=== PATIENT | male | born 1980 | race Caucasian/White ===

== ENCOUNTER → 2019-10-20 09:29 | Outpatient (BNVA) | payer MEDICARE, MEDICAID, SELFPAY | PROVIDERS: PCP Nurse Practitioner Family; Visit Provider Anesthesiology | DX: G89.29 Other chronic pain (principal); M51.16 Intervertebral disc disorders with radiculopathy, lumbar region; M54.2 Cervicalgia; F17.210 Nicotine dependence, cigarettes, uncomplicated; Z79.891 Long term (current) use of opiate analgesic | CPT/HCPCS: 99214 ==

== ENCOUNTER → 2020-02-15 12:54 | Outpatient (BNVA) | payer MEDICARE, SELFPAY | PROVIDERS: PCP Nurse Practitioner Family; Visit Provider Anesthesiology | DX: G89.29 Other chronic pain (principal); M51.16 Intervertebral disc disorders with radiculopathy, lumbar region; M54.9 Dorsalgia, unspecified; M54.2 Cervicalgia; F17.210 Nicotine dependence, cigarettes, uncomplicated; Z79.891 Long term (current) use of opiate analgesic; Z71.6 Tobacco abuse counseling | CPT/HCPCS: 99214 ==

== ENCOUNTER → 2020-04-04 13:13 | Outpatient (BNVA) | payer MEDICARE, MEDICAID, SELFPAY | PROVIDERS: PCP Nurse Practitioner Family; Visit Provider Anesthesiology | DX: G89.29 Other chronic pain (principal); M51.16 Intervertebral disc disorders with radiculopathy, lumbar region; M54.9 Dorsalgia, unspecified; M54.2 Cervicalgia; F17.210 Nicotine dependence, cigarettes, uncomplicated; Z79.891 Long term (current) use of opiate analgesic; Z71.6 Tobacco abuse counseling | CPT/HCPCS: 99214 ==

== ENCOUNTER 2020-05-19 17:49 | Emergency (ER) | payer MEDICARE, MEDICAID, SELFPAY ==
[2020-05-19 17:55] VITALS: BP 108/68; PULSE 65; RESP 16; TEMP 36.4; O2SAT 96; BMI 27.1
--- NOTE | 2020-05-19 18:12 | ECG_ITS ---
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 Measurements Intervals [place] Rate: 67 P: 76 FL: 178 QRS: 60 QRSD: 98 T: 55 QT: 360 QTc: 380 Interpretive Statements SINUS RHYTHM Compared to ECG 01/03/2019 04:48:08 Sinus bradycardia no longer present Electronically Signed On 05-19-2020 21:14:32 CDT by Paty Reeder M.D. [id number] f
--- NOTE | 2020-05-19 18:12 | XRR_ITS ---
PROCEDURE INFORMATION: Exam: XR Chest, 1 View Exam date and time: 05/19/2020 7:29 PM Age: 39 years old Clinical indication: Chest pain; Additional info: Cp TECHNIQUE: Imaging protocol: XR of the chest Views: 1 view. COMPARISON: CR Chest 1 [place] [id number] 01/03/2019 3:51 AM FINDINGS: Lungs: Unremarkable. No consolidation. Pleural space: Unremarkable. No pleural effusion. No pneumothorax. Heart/Mediastinum: Unremarkable. No cardiomegaly. Bones/joints: Unremarkable. XR/XR chest 1V portable [id number] IMPRESSION: No acute findings.
[2020-05-19 19:17] LABS: Add Urine Microscopic? NO
[2020-05-19 19:22] LABS: Bilirubin Urine Neg (NEGATIVE); Blood Urine Neg (Negative); Glucose Urine UA Norm (Normal); Ketones Urine Negative (Negative); Leukocyte Esterase Urine Negative (Negative); Nitrate Urine Negative (Negative); Protein Urine Neg (Negative); Urine Appearance Clear (CLEAR); Urine Color Dark Yellow (Yellow); Urobilinogen Urine 1 mg/dL (Negative); pH Urine 5 (5-7)
--- NOTE | 2020-05-19 19:25 | ED_ITS ---
HPI - Chest Pain General: Chief Complaint: Chest Pain Stated Complaint: cp Time Seen by Provider: 05/19/20 19:13 Source: patient Mode of arrival: ambulatory Limitations: no limitations History of Present Illness: HPI narrative: 39-year-old male patient comes in for some chest discomfort. Patient reports he had been started on some fenofibrate 1 week ago. Patient stated that since starting the medicine he had had some chest discomfort and just felt weird. Patient stopped the medication 2 days ago and has been feeling better since then. Patient has some mild discomfort but nothing like it was. Patient appears well. Patient appears in no acute distress. Patient does have some chronic pain issues for back pain. MD complaint: chest discomfort Review of Systems General: Reports: 10 or more systems reviewed and unremarkable except in HPI and below Card: Reports: chest pain [facility] ED PFSH: Medical History (Updated 05/19/20 @ 20:44 by PILO Tejada) Encounter for long-term use of opiate analgesic Intervertebral disc disorders with radiculopathy, lumbar region Neck pain, chronic Opioid contract exists Smoker Tobacco abuse counseling Surgical History H/O hand surgery H/O right knee surgery Family History Other CAD (coronary artery disease) Social History (Updated 04/04/20 @ 13:39 by Ayanna Moore LPN) Smoking and tobacco status: current every day smoker cigarettes Packs smoked per day: 0.5 Alcohol intake: unknown Physical Exam Const: COMMON NORMALS: no acute distress and patient oriented x3 GENERAL APPEARANCE: cooperative HENMT: COMMON NORMALS: normocephalic, TM's normal bilaterally and Normal external nose present HEAD & SCALP: normal to inspection and normocephalic NOSE: Normal external nose present TYMPANIC MEMBRANE: TM's normal bilaterally MOUTH: Normal oral and palatal mucosa present THROAT: posterior oropharynx normal Eye: GENERAL EYE: appearance normal, both eyes and all related structures Neck/C-Spine: COMMON NORMALS: full ROM Lymph: LYMPHATIC: no lymphadenopathy noted Chest: COMMONS NORMALS: normal inspection of the chest Resp: COMMON NORMALS: normal respiratory effort EFFORT & INSPECTION: Yes able to speak in complete sentences Cardio: COMMON NORMALS: regular rate and regular rhythm RATE: regular rate RHYTHM: regular rhythm GI: COMMON NORMALS: Soft to palpation and non-tender PALPATION: Yes Soft to palpation Back/Pelvis: COMMON NORMALS: thoracic and lumbar spine normal to inspection Extremity: COMMON NORMALS: normal to inspection Neuro: COMMON NORMALS: patient oriented x3 and moves all extremities Psych: COMMON NORMALS: mental status grossly normal and cooperative Skin: COMMON NORMALS: no rashes or lesions noted GENERAL SKIN EXAM: no rashes or lesions noted Course Vital Signs: Vital signs: Vital Signs Temperature 97.5 F L 05/19/20 17:55 Pulse Rate 65 05/19/20 17:55 Respiratory Rate 16 05/19/20 17:55 Blood Pressure 108/68 05/19/20 17:55 Pulse Oximetry 95 05/19/20 19:35 MDM - Chest Pain MDM Narrative: Medical decision making narrative: Patient came in for concerns of some chest discomfort. Patient reports that the discomfort has improved since stopping his finasteride that he was started on for his cholesterol. Patient came in for evaluation as his told him to. Patient appears well. Patient appears no acute distress. Heart rates regular. No edema in the e xtremities. Abdomen soft nontender. Vital signs are normal. Differential diagnosis includes but not limited to ACS, stable angina, adverse drug effect. Laboratory values were normal. Troponin was negative. EKG was normal. Reviewed exam with patient I believe it is probably due to his finasteride that he was started on for his cholesterol. Since the finasteride works with the liver to suppressed bile it may be causing some gastric distress and thus referred abdominal pain. No signs of cardiac involvement is noted at this time. Reviewed recommendations for follow-up and further evaluation by primary care. Patient stated understanding and agreed to plan. Lab Data: Labs: Lab Results 05/19/20 05/19/20 05/19/20 Range/Units 19:11 19:11 19:49 WBC 12.0 H (4.0-10.0) 10^3/ uL RBC 4.92 (4.1-5.3) 10^6/u L Hgb 15.6 (11.7-16.6) g/dL Hct 45.0 (42.0-52.0) % MCV 91.5 (80-94) fL MCH 31.7 (28.0-34.0) pg MCHC 34.7 (30.0-36.0) g/dL RDW 13.1 (12.1-15.1) % Plt Count 198 (130-400) 10^3/c mm MPV 10.2 (7.4-10.4) fL Neut % (Auto) 55.8 % Lymph % (Auto) 32.8 % Dawson % (Auto) 7.5 % Eos % (Auto) 3.2 % Baso % (Auto) 0.5 % Neut # (Auto) 6.70 (1.8-7.7) 10^3/u L Lymph # (Auto) 3.9 (0.8-4.8) 10^3/u L Dawson # (Auto) 0.9 (0.2-0.9) 10^3/u L Eos # (Auto) 0.4 (0.0-0.8) 10^3/u L Baso # (Auto) 0.1 (0.0-0.1) 10^3/u L Nucleated RBC % (a uto) 0 % Nucleated RBCs # 0.0 /100WBC PT (12.1-14.9) SECO NDS INR (0.8-1.2) APTT (23.9-36.7) SECO NDS Sodium (136-145) mmol/L Potassium (3.5-5.1) mmol/L Chloride (98-107) mmol/L Carbon Dioxide (22-29) mmol/L Anion Gap (5-19) BUN (6-20) mg/dL Creatinine (0.7-1.2) mg/dL GFR Calculation (90-130) mL/min Glucose (65-115) mg/dL Calculated Osmolal ity (285-295) mOsm/k g Calcium (8.5-10.5) mg/dL Total Bilirubin (0.15-1.2) mg/dL AST (0-40) U/L ALT (0-41) U/L Alkaline Phosphata se (40-130) IU/L Troponin T Baselin e (0-15) ng/L NT-Pro-B Natriuret Pep (0-125) pg/mL Total Protein (6.6-8.7) g/dL Albumin (3.5-5.2) g/dL Globulin (1.3-4.6) g/dL Urine Color Dark yellow (Yellow) Urine Appearance Clear (CLEAR) Urine pH 5 (5-7) Ur Specific Gravit y 1.030 (1.005-1.030) Urine Protein Neg (Negative) Urine Glucose (UA) Norm (Normal) Urine Ketones Negative (Negative) Urine Blood Neg (Negative) Urine Nitrate Negative (Negative) Urine Bilirubin Neg (NEGATIVE) Urine Urobilinogen 1 H (Negative) mg/dL Ur Leukocyte Kristen ase Negative (Negative) Urine Opiates Scre en Negative (Negative) ng/mL Ur Barbiturates Sc reen Negative (Negative) ng/mL Ur Phencyclidine S crn Negative (Negative) ng/mL Ur Amphetamines Sc reen Negative (Negative) ng/mL U Benzodiazepines Scrn Negative (Negative) ng/mL Urine Cocaine Scre en Negative (Negative) ng/mL U Marijuana (THC) Screen Positive H (Negative) ng/mL 05/19/20 05/19/20 05/19/20 Range/Units 19:49 19:49 19:49 WBC (4.0-10.0) 10^3/ uL RBC (4.1-5.3) 10^6/u L Hgb (11.7-16.6) g/dL Hct (42.0-52.0) % MCV (80-94) fL MCH (28.0-34.0) pg MCHC (30.0-36.0) g/dL RDW (12.1-15.1) % Plt Count (130-400) 10^3/c mm MPV (7.4-10.4) fL Neut % (Auto) % Lymph % (Auto) % Dawson % (Auto) % Eos % (Auto) % Baso % (Auto) % Neut # (Auto) (1.8-7.7) 10^3/u L Lymph # (Auto) (0.8-4.8) 10^3/u L Dawson # (Auto) (0.2-0.9) 10^3/u L Eos # (Auto) (0.0-0.8) 10^3/u L Baso # (Auto) (0.0-0.1) 10^3/u L Nucleated RBC % (a uto) % Nucleated RBCs # /100WBC PT 12.90 (12.1-14.9) SECO NDS INR 0.94 (0.8-1.2) APTT 28.5 (23.9-36.7) SECO NDS Sodium 140 (136-145) mmol/L Potassium 4.0 (3.5-5.1) mmol/L Chloride 104 (98-107) mmol/L Carbon Dioxide 27 (22-29) mmol/L Anion Gap 13.0 (5-19) BUN 20 (6-20) mg/dL Creatinine 0.9 (0.7-1.2) mg/dL GFR Calculation 93.0 (90-130) mL/min Glucose 106 (65-115) mg/dL Calculated Osmolal ity 287 (285-295) mOsm/k g Calcium 9.3 (8.5-10.5) mg/dL Total Bilirubin 1.1 (0.15-1.2) mg/dL AST 13 (0-40) U/L ALT 20 (0-41) U/L Alkaline Phosphata se 58 (40-130) IU/L Troponin T Baselin e 7 (0-15) ng/L NT-Pro-B Natriuret Pep 39 (0-125) pg/mL Total Protein 6.9 (6.6-8.7) g/dL Albumin 4.6 (3.5-5.2) g/dL Globulin 2.3 (1.3-4.6) g/dL Urine Color (Yellow) Urine Appearance (CLEAR) Urine pH (5-7) Ur Specific Gravit y (1.005-1.030) Urine Protein (Negative) Urine Glucose (UA) (Normal) Urine Ketones (Negative) Urine Blood (Negative) Urine Nitrate (Negative) Urine Bilirubin (NEGATIVE) Urine Urobilinogen (Negative) mg/dL Ur Leukocyte Kristen ase (Negative) Urine Opiates Scre en (Negative) ng/mL Ur Barbiturates Sc reen (Negative) ng/mL Ur Phencyclidine S crn (Negative) ng/mL Ur Amphetamines Sc reen (Negative) ng/mL U Benzodiazepines Scrn (Negative) ng/mL Urine Cocaine Scre en (Negative) ng/mL U Marijuana (THC) Screen (Negative) ng/mL EKG Data^: EKG 1: Attestation: I personally reviewed and interpreted this EKG as follows: (1925, normal sinus rhythm, regular rate at 67 bpm, no ST elevation, no ectopy.) EKG 2: Attestation: I personally reviewed and interpreted this EKG as follows: (2044, sinus bradycardia regular rate at 51 bpm no ectopy or ST elevation.) Discharge Plan Discharge Patient Disposition: Home Clinical Impression: Adverse drug effect Qualifiers: Encounter type: initial encounter Qualified Code(s): T50.905A - Adverse effect of unspecified drugs, medicaments and biological substances, initial encounter Condition: Stable Prescriptions: No Action oxycodone 15 mg tablet 15 mg PO TID PRN (Reason: pain) 30 Days Qty: 90 RF: 0 oxycodone 15 mg tablet 15 mg PO TID PRN (Reason: pain) 30 Days Qty: 90 RF: 0 tramadol 50 mg tablet 50 mg PO QID PRN (Reason: pain) 30 Days Qty: 120 RF: 1 pregabalin [Lyrica] 200 mg capsule 200 mg PO TID 30 Days Qty: 90 RF: 1 Discharge Orders: Discharge Order (Routine); Ordered 05/19/20 Ordered By: Ced Feliciano Referrals: Mitch Alcala NP [Primary Care Provider] - Discharge Diet: Usual diet Discharge Activity: Increase activity as tolerated Patient Instructions: Chest Pain (ED) Activity Restrictions/Additional Instructions: Healthy diet and exercise. Encourage plenty of fluids. Stop finasteride and follow-up with primary care for alternative medication. Follow-up with primary care as needed. Return to the emergency department for new concerns. Coding Level of Care Code ED Bobbin Collector for Ronyg Fwd Exam Comprehensive
[2020-05-19 19:27] LABS: Amphetamines Screen Urine Negative (Negative); Barbiturates Screen Urine Negative (Negative); Benzodiazepines Screen Urine Negative (Negative); Cocaine Screen Urine Negative (Negative); Opiate Screen Urine Negative (Negative); PCP Screen Urine Negative (Negative); THC Screen Urine Positive (Negative)
[2020-05-19 19:35] VITALS: O2SAT 95
[2020-05-19 19:55] LABS: Basophils # 0.1 10^3/uL (0.0-0.1); Basophils % 0.5 %; Eosinophils # 0.4 10^3/uL (0.0-0.8); Eosinophils % 3.2 %; Hemoglobin 15.6 g/dL (11.7-16.6); Lymphocytes # 3.9 10^3/uL (0.8-4.8); Lymphocytes % 32.8 %; Mean Corpuscular HGB Conc 34.7 g/dL (30.0-36.0); Mean Corpuscular Hemoglobin 31.7 pg (28.0-34.0); Mean Corpuscular Volume 91.5 fL (80-94); Mean Platelet Volume 10.2 fL (7.4-10.4); Monocytes # 0.9 10^3/uL (0.2-0.9); Monocytes % 7.5 %; Neutrophils % 55.8 %; Nucleated Red Blood Cells % 0 %; Platelet Count 198 10^3/cmm (130-400); Red Blood Count 4.92 10^6/uL (4.1-5.3); Red Cell Distribution Width 13.1 % (12.1-15.1)
[2020-05-19 20:07] LABS: INR 0.94 (0.8-1.2)
[2020-05-19 20:08] LABS: Partial Thromboplastin Time 28.5 SECONDS (23.9-36.7)
--- NOTE | 2020-05-19 20:12 | ECG_ITS ---
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 Measurements Intervals [place] Rate: 51 P: 76 [place]: 193 QRS: 59 QRSD: 99 T: 49 QT: 390 QTc: 362 Interpretive Statements SINUS BRADYCARDIA Compared to ECG 05/19/2020 18:05:55 Sinus rhythm no longer present Electronically Signed On 05-19-2020 21:16:39 CDT by Paty Reeder M.D. [id number]
[2020-05-19 20:24] LABS: Troponin(5th) Baseline 7 ng/L (0-15)
[2020-05-19 20:33] LABS: Alanine Aminotransferase 20 U/L (0-41); Albumin Level 4.6 g/dL (3.5-5.2); Alkaline Phosphatase 58 IU/L (40-130); Aspartate Amino Transferase 13 U/L (0-40); Blood Urea Nitrogen 20 mg/dL (6-20); Calcium 9.3 mg/dL (8.5-10.5); Carbon Dioxide 27 mmol/L (22-29); Chloride 104 mmol/L (98-107); Creatinine Clr Calc Pharmacy 126.5721; Globulin 2.3 g/dL (1.3-4.6); Glucose 106 mg/dL (65-115); NT Pro B Type Natriuretic Pept 39 pg/mL (0-125); Osmolality Calculated 287 mOsm/kg (285-295); Sodium 140 mmol/L (136-145); Total Bilirubin 1.1 mg/dL (0.15-1.2); Total Protein 6.9 g/dL (6.6-8.7)
[2020-05-19 21:05] VITALS: BP 167/84; PULSE 85; RESP 18; O2SAT 95
== END 2020-05-19 21:07 | disposition home or self-care (01) ==
PROVIDERS: Emergency Medicine; Emergency Provider Nurse Practitioner Family; PCP Nurse Practitioner Family
DX: T88.7XXA Unspecified adverse effect of drug or medicament, initial encounter (principal); T50.905A Adverse effect of unspecified drugs, medicaments and biological substances, initial encounter; F17.210 Nicotine dependence, cigarettes, uncomplicated; Z79.899 Other long term (current) drug therapy
CPT/HCPCS: 12345; 36415; 71045; 80053; 80306; 81003; 83880; 84484; 85025; 85610; 85730; 93005; 99283; 99284

== ENCOUNTER → 2020-06-06 13:07 | Outpatient (BNVA) | payer MEDICARE, MEDICAID, SELFPAY | PROVIDERS: PCP Nurse Practitioner Family; Visit Provider Anesthesiology | DX: G89.29 Other chronic pain (principal); M51.16 Intervertebral disc disorders with radiculopathy, lumbar region; M54.2 Cervicalgia; M54.9 Dorsalgia, unspecified; F17.210 Nicotine dependence, cigarettes, uncomplicated; Z71.6 Tobacco abuse counseling; Z79.891 Long term (current) use of opiate analgesic | CPT/HCPCS: 99214 ==

== ENCOUNTER → 2020-08-15 12:39 | Outpatient (BNVA) | payer MEDICARE, MEDICAID, SELFPAY | PROVIDERS: PCP Nurse Practitioner Family; Visit Provider Anesthesiology | DX: G89.29 Other chronic pain (principal); M51.16 Intervertebral disc disorders with radiculopathy, lumbar region; M54.2 Cervicalgia; M54.9 Dorsalgia, unspecified; F17.210 Nicotine dependence, cigarettes, uncomplicated; Z79.891 Long term (current) use of opiate analgesic | CPT/HCPCS: 99213; 99214 ==

== ENCOUNTER → 2020-10-10 10:53 | Outpatient (BNVA) | payer MEDICARE, MEDICAID, SELFPAY | PROVIDERS: PCP Nurse Practitioner Family; Visit Provider Anesthesiology | DX: G89.29 Other chronic pain (principal); M51.16 Intervertebral disc disorders with radiculopathy, lumbar region; M54.2 Cervicalgia; M54.9 Dorsalgia, unspecified; F17.200 Nicotine dependence, unspecified, uncomplicated; Z79.891 Long term (current) use of opiate analgesic | CPT/HCPCS: 99213 ==

== ENCOUNTER → 2020-12-07 12:39 | Outpatient (BNVA) | payer MEDICARE, MEDICAID, SELFPAY | PROVIDERS: PCP Nurse Practitioner Family; Visit Provider Anesthesiology | DX: G89.29 Other chronic pain (principal); M51.16 Intervertebral disc disorders with radiculopathy, lumbar region; M54.9 Dorsalgia, unspecified; M54.2 Cervicalgia; F17.200 Nicotine dependence, unspecified, uncomplicated; Z79.891 Long term (current) use of opiate analgesic | CPT/HCPCS: 99214 ==

== ENCOUNTER → 2021-02-01 09:34 | Outpatient (BNVA) | payer MEDICARE, MEDICAID, SELFPAY | PROVIDERS: PCP Nurse Practitioner Family; Visit Provider Nurse Practitioner | DX: G89.29 Other chronic pain (principal); M51.16 Intervertebral disc disorders with radiculopathy, lumbar region; M54.9 Dorsalgia, unspecified; M54.2 Cervicalgia; Z87.891 Personal history of nicotine dependence; Z79.891 Long term (current) use of opiate analgesic | CPT/HCPCS: 99215 ==

== ENCOUNTER → 2021-03-09 09:14 | Outpatient (BNVA) | payer MEDICARE, MEDICAID, SELFPAY | PROVIDERS: PCP Nurse Practitioner Family; Visit Provider Anesthesiology | DX: G89.29 Other chronic pain (principal); M51.16 Intervertebral disc disorders with radiculopathy, lumbar region; M54.9 Dorsalgia, unspecified; M54.2 Cervicalgia; Z79.891 Long term (current) use of opiate analgesic; Z87.891 Personal history of nicotine dependence | CPT/HCPCS: 99214 ==

== ENCOUNTER → 2021-05-03 13:10 | Outpatient (BNVA) | payer MEDICARE, MEDICAID, SELFPAY | PROVIDERS: PCP Nurse Practitioner Family; Visit Provider Anesthesiology | DX: G89.29 Other chronic pain (principal); M51.16 Intervertebral disc disorders with radiculopathy, lumbar region; M54.2 Cervicalgia; F17.290 Nicotine dependence, other tobacco product, uncomplicated; Z79.891 Long term (current) use of opiate analgesic | CPT/HCPCS: 99214 ==

== ENCOUNTER 2021-06-20 05:51 | Emergency (ER) | payer MEDICARE, MEDICAID, SELFPAY ==
[2021-06-20 05:56] VITALS: BP 149/66; PULSE 83; RESP 16; TEMP 36.4; O2SAT 96; BMI 27.1
--- NOTE | 2021-06-20 06:43 | US_ITS ---
WS: [id number] SCROTAL ULTRASOUND REASON FOR EXAM: Torsion COMPARISON: None available. TECHNIQUE: Grayscale and duplex color Doppler ultrasound examination of the scrotum. FINDINGS: RIGHT: Varicocele and minimal hydrocele. Right testes measures 5.2 cm x 3.0 cm x 2.7 cm. Normal echogenicity. No focal lesion. . Normal blood flow. Right epididymis measures 0.9 cm x 1.0 cm x 1.2 cm. Small cyst. LEFT: Varicocele and minimal hydrocele. Left testes measures 5.4 cm x 3.2 cm x 2.7 cm. Normal echogenicity. No focal lesion. Normal blood torrey w. Left epididymis measures 0.5 cm x 0.9 cm x 0.9 cm. Small cyst. US/US scrotum [id number] IMPRESSION: Bilateral varicocele and minimal hydrocele. Normal testicular blood flow. No ma ss.
--- NOTE | 2021-06-20 06:44 | ED_ITS ---
HPI - Male Genitourinary General: Chief complaint: Urogenital-Male Stated complaint: abd pain, nausea, groin pain Time Seen by Provider: 06/20/21 06:41 History of Present Illness: HPI Narrative: This patient is a 40-year-old male who presents to the emergency department with complaint of right testicular pain. Patient states the pain is been present for about a day. Just uncomfortable. Patient denies any trauma. Denies any heavy lifting. Will do medical evaluation treat as needed Complaint: testicle pain Onset (ago): day(s) Duration: constant Location: right testicle Severity scale (1-10): 6 Associated symptoms: Deny dysuria, nausea or vomiting Review of Systems General: Reports: 10 or more systems reviewed and unremarkable except in HPI and below Const: Denies: fever(s), chills, body aches or fatigue Eyes: Denies: change in vision or blurry vision ENMT: Denies: throat pain, hoarseness or mouth pain Card: Denies: chest pain, palpitations, irregular heart rhythm, edema, swelling of feet/ankles or lightheadedness Resp: Denies: dyspnea, productive cough, non-productive cough, wheezing or pain on inspiration GI: Denies: abdominal pain, nausea or vomiting : Reports: testicular pain; Denies: flank pain, dysuria, urinary frequency, urinary urgency or urinary hesitancy Musc: Denies: neck pain, back pain, extremity pain, extremity swelling, joint pain, joint swelling, joint redness, joint warmth or limited range of motion Skin/Breast: Denies: rash, pruritus, erythema or skin tenderness Neuro: Denies: headache(s), numbness in extremities or weakness in extremities Psych: Denies: anxiety or depression [facility] ED PFSH: Medical History (Updated 06/20/21 @ 08:10 by Corey Shah MD) Encounter for long-term use of opiate analgesic Intervertebral disc disorders with radiculopathy, lumbar region Neck pain, chronic Opioid contract exists Smoker Tobacco abuse counseling Surgical History H/O hand surgery H/O right knee surgery Family History Other CAD (coronary artery disease) Social History Smoking and tobacco status: current every day smoker (VAPES) e-cigarettes Quit status (tobacco): has quit using tobacco Second hand smoke exposure: Yes Alcohol intake: never History of recent travel: No Physical Exam Const: COMMON NORMALS: no acute distress, average body habitus, patient oriented x3, no limitations, healthy appearing, alert and well nourished HENMT: COMMON NORMALS: normocephalic, atraumatic, hearing grossly normal bilaterally, external ears normal, EAC's normal, TM's normal bilaterally, Normal external nose present, Normal nasal mucous membranes and turbinates present, moist oral mucous membranes, oropharynx normal, dentition normal and gingiva normal HEAD & SCALP: normocephalic and atraumatic NOSE: Normal external nose present and Normal nasal mucous membranes and turbinates present EXTERNAL EAR: Yes external ears normal EXTERNAL AUDITORY CANAL: EAC's normal TYMPANIC MEMBRANE: TM's normal bilaterally Neck/C-Spine: COMMON NORMALS: full ROM, no lymphadenopathy, supple, no meningeal signs, no JVD, Thyroid normal and No carotid bruits THYROID: Thyroid normal Chest: COMMONS NORMALS: normal inspection of the chest, normal palpation of entire chest wall, normal inspection of the breasts and normal palpation of the breasts Breast/axilla inspection: Yes normal inspection of the breasts BREAST/AXILLA PALPATION: Yes normal palpation of the breasts Resp: COMMON NORMALS: normal respiratory effort, No retractions, No use of accessory muscles, clear to auscultation bilaterally and percussion normal AUSCULTATION: clear to auscultation bilaterally PERCUSSION: percussion normal Cardio: COMMON NORMALS: no JVD, regular rate, regular rhythm, S1 normal heart sound present, S2 normal heart sound present, No gallops present (Cardio), No clicks present (Cardio), No murmurs present (Cardio), No rub (Cardio) and Peripheral pulses 2+ throughout RATE: regular rate RHYTHM: regular rhythm HEART SOUNDS: S1 normal heart sound present and S2 normal heart sound present PERIPHERAL PULSES: Peripheral pulses 2+ throughout GI: COMMON NORMALS: Normal to inspection, nondistended, normoactive bowel sounds present, Soft to palpation, non-tender, No hepatosplenomegaly present, no masses and no bruits PALPATION: Yes Soft to palpation and Yes No hepatosplenomegaly present : COMMON NORMALS: Yes no CVA tenderness BLADDER/KIDNEY EXAM: Yes no CVA tenderness TESTES: Yes testicular tenderness Testicular tenderness laterality: right Back/Pelvis: COMMON NORMALS: no CVA tenderness, thoracic and lumbar spine normal to inspection, no thoracic nor lumbar tenderness, thoraco-lumbar ROM normal and straight leg raise negative bilaterally Extremity: COMMON NORMALS: normal to inspection, full ROM, capillary refill normal, no joint enlargement, no clubbing, cyanosis or edema, no calf tenderness and no pedal edema Neuro: COMMON NORMALS: patient oriented x3 SENSORIUM/ORIENTATION: Yes alert MENINGEAL SIGNS: Yes no meningeal signs Course Vital Signs: Vital signs: Vital Signs Temperature 98 F 06/20/21 06:58 Pulse Rate 60 06/20/21 06:58 Respiratory Rate 14 06/20/21 06:58 Blood Pressure 109/69 06/20/21 06:58 Pulse Oximetry 95 06/20/21 06:58 MDM - Male MDM Narrative: Medical decision making narrative: This patient is a 40-year-old male who presents to the emergency department with complaint of right testicular pain. Patient states the pain is been present for about a day. Just uncomfortable. Patient denies any trauma. Denies any heavy lifting. Will do medical evaluation treat as needed Negative evaluation in the emergency department for any acute findings. Patient is to continue all home medications. As needed. Follow-up with PCP in 2 to 3 days. Medical Records: Attestation: I reviewed the patient's medical records. Lab Data: Attestation: I reviewed the patient's lab results. Labs: Lab Results 06/20/21 06/20/21 06/20/21 06:50 06:50 07:27 WBC 8.8 10^3/uL 10^3/ uL (4.0-10.0) RBC 4.83 10^6/uL 10^6 /uL (4.1-5.3) Hgb 15.3 g/dL g/dL (11.7-16.6) Hct 43.8 % % (42.0-52.0) MCV 90.7 fl fl (80-94) MCH 31.7 pg pg (28.0-34.0) MCHC 34.9 g/dL g/dL (30.0-36.0) RDW 12.3 % % (12.1-15.1) Plt Count 186 10^3/cmm 10^3 /cmm (130-400) MPV 10.3 fL fL (7.4-10.4) Neut % (Auto) 54.8 % % Lymph % (Auto) 32.1 % % Nelson % (Auto) 8.9 % % Eos % (Auto) 3.5 % % Baso % (Auto) 0.5 % % Neut # (Auto) 4.83 10^3/uL 10^3 /uL (1.8-7.7) Lymph # (Auto) 2.8 10^3/uL 10^3/ uL (0.8-4.8) Nelson # (Auto) 0.8 10^3/uL 10^3/ uL (0.2-0.9) Eos # (Auto) 0.3 10^3/uL 10^3/ uL (0.0-0.8) Baso # (Auto) 0.0 10^3/uL 10^3/ uL (0.0-0.1) Nucleated RBC % (a uto) 0 % % Nucleated RBCs # 0.0 /100WBC /100W BC Sodium 142 mmol/L mmol/L (136-145) Potassium 3.9 mmol/L mmol/L (3.5-5.1) Chloride 107 mmol/L mmol/L (98-107) Carbon Dioxide 27 mmol/L mmol/L (22-29) Anion Gap 11.9 (5-19) BUN 15 mg/dL mg/dL (6-20) Creatinine 0.9 mg/dL mg/dL (0.7-1.2) GFR Calculation 92.5 mL/min mL/mi n (90-130) Glucose 106 mg/dL mg/dL (65-115) Calculated Osmolal ity 295 mOsm/kg mOsm/ kg (285-295) Calcium 9.4 mg/dL mg/dL (8.5-10.5) Urine Color Yellow (Yellow) Urine Appearance Clear (CLEAR) Urine pH 6 (5-7) Ur Specific Gravit y 1.020 (1.005-1.030) Urine Protein Neg (Negative) Urine Glucose (UA) Norm (Normal) Urine Ketones Negative (Negative) Urine Blood Neg (Negative) Urine Nitrate Negative (Negative) Urine Bilirubin Neg (Negative) Urine Urobilinogen Norm mg/dL mg/dL (Negative) Ur Leukocyte Kristen ase Negative (Negative) Urine Opiates Scre en Ur Barbiturates Sc reen Ur Phencyclidine S crn Ur Amphetamines Sc reen U Benzodiazepines Scrn Urine Cocaine Scre en U Marijuana (THC) Screen 06/20/21 07:27 WBC RBC Hgb Hct MCV MCH MCHC RDW Plt Count MPV Neut % (Auto) Lymph % (Auto) Nelson % (Auto) Eos % (Auto) Baso % (Auto) Neut # (Auto) Lymph # (Auto) Nelson # (Auto) Eos # (Auto) Baso # (Auto) Nucleated RBC % (a uto) Nucleated RBCs # Sodium Potassium Chloride Carbon Dioxide Anion Gap BUN Creatinine GFR Calculation Glucose Calculated Osmolal ity Calcium Urine Color Urine Appearance Urine pH Ur Specific Gravit y Urine Protein Urine Glucose (UA) Urine Ketones Urine Blood Urine Nitrate Urine Bilirubin Urine Urobilinogen Ur Leukocyte Kristen ase Urine Opiates Scre en Negative ng/mL ng /mL (Negative) Ur Barbiturates Sc reen Negative ng/mL ng /mL (Negative) Ur Phencyclidine S crn Negative ng/mL ng /mL (Negative) Ur Amphetamines Sc reen Negative ng/mL ng /mL (Negative) U Benzodiazepines Scrn Negative ng/mL ng /mL (Negative) Urine Cocaine Scre en Negative ng/mL ng /mL (Negative) U Marijuana (THC) Screen Positive ng/mL H ng/mL (Negative) Imaging Data: US: Attestation: I personally reviewed and interpreted this imaging study as follows: Radiologist's impression: IMPRESSION: Bilateral varicocele and minimal hydrocele. Normal testicular blood flow. No mass. Discharge Plan Discharge Patient Disposition: Home Clinical Impression: Right varicocele Condition: Stable Prescriptions: No Action oxycodone 15 mg tablet 15 mg PO TID PRN (Reason: pain) 30 Days Qty: 90 RF: 0 oxycodone 15 mg tablet 15 mg PO TID PRN (Reason: pain) 30 Days Qty: 90 RF: 0 tramadol 50 mg tablet 50 mg PO QID PRN (Reason: pain) 30 Days Qty: 120 RF: 1 pregabalin [Lyrica] 200 mg capsule 200 mg PO TID 30 Days Qty: 90 RF: 1 Discharge Orders: Discharge ED (Routine); Ordered 10/06/21 Ordered By: Corey Shah Referrals: PETER SANDHU [facility], [Primary Care Provider] - Discharge Diet: Advance as tolerated Discharge Activity: Resume usual activity Patient Instructions: Opioid Safety Activity Restrictions/Additional Instructions: Negative evaluation in the emergency department for any acute findings. Patient is to continue all home medications. As needed. Follow-up with PCP in 2 to 3 days. Coding Level of Care Code ED Head Refrigerating Engineer for Ronyg Fwd Exam Comprehensive
[2021-06-20 06:58] VITALS: BP 109/69; PULSE 60; RESP 14; TEMP 36.6; O2SAT 95
[2021-06-20 07:11] LABS: Basophils % 0.5 %; Eosinophils # 0.3 10^3/uL (0.0-0.8); Eosinophils % 3.5 %; Hematocrit 43.8 % (42.0-52.0); Hemoglobin 15.3 g/dL (11.7-16.6); Lymphocytes # 2.8 10^3/uL (0.8-4.8); Lymphocytes % 32.1 %; Mean Corpuscular HGB Conc 34.9 g/dL (30.0-36.0); Mean Corpuscular Hemoglobin 31.7 pg (28.0-34.0); Mean Corpuscular Volume 90.7 fl (80-94); Mean Platelet Volume 10.3 fL (7.4-10.4); Monocytes # 0.8 10^3/uL (0.2-0.9); Monocytes % 8.9 %; Neutrophils # 4.83 10^3/uL (1.8-7.7); Neutrophils % 54.8 %; Nucleated Red Blood Cells % 0 %; Platelet Count 186 10^3/cmm (130-400); Red Blood Count 4.83 10^6/uL (4.1-5.3); Red Cell Distribution Width 12.3 % (12.1-15.1); White Blood Count 8.8 10^3/uL (4.0-10.0)
[2021-06-20 07:22] LABS: Anion Gap 11.9 (5-19); Blood Urea Nitrogen 15 mg/dL (6-20); Calcium 9.4 mg/dL (8.5-10.5); Carbon Dioxide 27 mmol/L (22-29); Chloride 107 mmol/L (98-107); Glomerular Filtration Rate 92.5 mL/min (90-130); Glucose 106 mg/dL (65-115); Osmolality Calculated 295 mOsm/kg (285-295); Potassium 3.9 mmol/L (3.5-5.1); Sodium 142 mmol/L (136-145)
[2021-06-20 07:30] LABS: Add Urine Microscopic? NO; Charge for UA Resulting for Rev
[2021-06-20] MEDS: ketorolac 30 mg/mL INJ 15 MG IVP (07:31)
[2021-06-20] MEDS: ondansetron 2 mg/ML SDV 2 mL 4 MG IVP (07:31)
[2021-06-20 07:34] LABS: Bilirubin Urine Neg (Negative); Blood Urine Neg (Negative); Glucose Urine UA Norm (Normal); Ketones Urine Negative (Negative); Leukocyte Esterase Urine Negative (Negative); Nitrate Urine Negative (Negative); Protein Urine Neg (Negative); Urine Appearance Clear (CLEAR); Urine Color Yellow (Yellow); Urobilinogen Urine Norm (Negative); pH Urine 6 (5-7)
[2021-06-20 07:43] LABS: Amphetamines Screen Urine Negative (Negative); Barbiturates Screen Urine Negative (Negative); Benzodiazepines Screen Urine Negative (Negative); Cocaine Screen Urine Negative (Negative); Opiate Screen Urine Negative (Negative); PCP Screen Urine Negative (Negative); THC Screen Urine Positive (Negative)
== END 2021-06-20 08:51 | disposition home or self-care (01) ==
PROVIDERS: Emergency Provider Emergency Medicine
DX: I86.1 Scrotal varices (principal); F17.290 Nicotine dependence, other tobacco product, uncomplicated
CPT/HCPCS: 76870; 80048; 80306; 81003; 85025; 96374; 96375; 99283; J1885; J2405

== ENCOUNTER 2021-06-23 06:03 | Emergency (ER) | payer MEDICARE, MEDICAID, SELFPAY ==
[2021-06-23 06:20] VITALS: BP 110/69; PULSE 69; RESP 18; TEMP 36.7; O2SAT 96; BMI 27.1
[2021-06-23 06:37] LABS: Basophils % 0.4 %; Eosinophils # 0.4 10^3/uL (0.0-0.8); Eosinophils % 4.9 %; Hematocrit 43.9 % (42.0-52.0); Hemoglobin 15.2 g/dL (11.7-16.6); Lymphocytes # 3.1 10^3/uL (0.8-4.8); Mean Corpuscular HGB Conc 34.6 g/dL (30.0-36.0); Mean Corpuscular Hemoglobin 32.1 pg (28.0-34.0); Mean Corpuscular Volume 92.8 fl (80-94); Mean Platelet Volume 10.4 fL (7.4-10.4); Monocytes # 0.6 10^3/uL (0.2-0.9); Monocytes % 7.4 %; Neutrophils # 3.97 10^3/uL (1.8-7.7); Neutrophils % 49.1 %; Nucleated Red Blood Cells % 0 %; Platelet Count 201 10^3/cmm (130-400); Red Blood Count 4.73 10^6/uL (4.1-5.3); Red Cell Distribution Width 12.5 % (12.1-15.1); White Blood Count 8.1 10^3/uL (4.0-10.0)
[2021-06-23 06:45] LABS: Add Urine Microscopic? NO; Charge for UA Resulting for Rev
[2021-06-23 06:46] LABS: Bilirubin Urine Neg (Negative); Blood Urine Neg (Negative); Glucose Urine UA Norm (Normal); Ketones Urine Negative (Negative); Leukocyte Esterase Urine Negative (Negative); Nitrate Urine Negative (Negative); Protein Urine Neg (Negative); Urine Appearance Clear (CLEAR); Urine Color Yellow (Yellow); Urobilinogen Urine 1 mg/dL (Negative); pH Urine 7 (5-7)
[2021-06-23 06:58] LABS: Alanine Aminotransferase 16 U/L (0-41); Albumin Level 4.1 g/dL (3.5-5.2); Alkaline Phosphatase 66 IU/L (40-130); Anion Gap 12.8 (5-19); Aspartate Amino Transferase 15 U/L (0-40); Blood Urea Nitrogen 14 mg/dL (6-20); Calcium 9.1 mg/dL (8.5-10.5); Carbon Dioxide 26 mmol/L (22-29); Chloride 102 mmol/L (98-107); Globulin 2.8 g/dL (1.3-4.6); Glomerular Filtration Rate 92.5 mL/min (90-130); Glucose 142 mg/dL (65-115); Osmolality Calculated 287 mOsm/kg (285-295); Potassium 3.8 mmol/L (3.5-5.1); Sodium 137 mmol/L (136-145); Total Bilirubin 0.6 mg/dL (0.15-1.2); Total Protein 6.9 g/dL (6.6-8.7)
--- NOTE | 2021-06-23 07:07 | ED_ITS ---
HPI - Back Pain/Injury General: Chief Complaint: Back Pain/Injury Stated Complaint: r flank pain Time Seen by Provider: 06/23/21 06:19 History of Present Illness: HPI Narrative: 40-year-old male presents to the emergency room with complaint of right flank pain. He says is increasing the last couple of days but has had it actually for couple months. He sees the pain clinic for which she is on oxycodone Lyrica and tramadol. He denies any dysuria urgency or frequency is not noted a bulge in the groin denies any nausea or vomiting. Patient was seen in emergency room on 06 20 scrotum ultrasound showed small varicoceles bilaterally. MD elicited complaint: back pain Pertinent past history: prior back pain Onset (ago): month(s) Timing: intermittent Severity: mild Similar Symptoms Previously: Yes Quality: aching Radiation: none Exacerbating factors: none Relieving factors: none Associated symptoms: Deny abdominal pain, arthralgias, chills, change in bowel habits, difficulty walking, dysuria, fatigue, fecal incontinence, fever(s), hematuria, myalgias, nausea, numbness, syncope, tingling/numbness/burning, urinary frequency, urinary urgency, vomiting or weakness Treatments prior to arrival: prescription analgesics Review of Systems Const: Denies: fever(s), chills or fatigue ENMT: Denies: throat pain, ear or mastoid pain, nasal discharge or nasal congestion Card: Denies: syncope Resp: Denies: dyspnea, productive cough or non-productive cough GI: Denies: abdominal pain, nausea, vomiting, fecal incontinence or change in bowel habits : Denies: dysuria, urinary urgency or hematuria Skin/Breast: Denies: rash or pruritus Neuro: Denies: difficulty walking [facility] ED PFSH: Medical History (Updated 06/23/21 @ 07:11 by Fernie Bolaños DO) Encounter for long-term use of opiate analgesic Intervertebral disc disorders with radiculopathy, lumbar region Neck pain, chronic Opioid contract exists Smoker Tobacco abuse counseling Surgical History H/O hand surgery H/O right knee surgery Family History Other CAD (coronary artery disease) Social History Smoking and tobacco status: current every day smoker (VAPES) e-cigarettes Quit status (tobacco): has quit using tobacco Second hand smoke exposure: Yes Alcohol intake: never History of recent travel: No Physical Exam Const: COMMON NORMALS: no acute distress GENERAL APPEARANCE: cooperative and comfortable ORIENTATION/CONSCIOUSNESS: Yes awake, Yes oriented to person, Yes oriented to place and Yes oriented to time HENMT: COMMON NORMALS: normocephalic, atraumatic and hearing grossly normal bilaterally HEAD & SCALP: normocephalic and atraumatic Neck/C-Spine: COMMON NORMALS: no JVD Lymph: LYMPHATIC: no lymphadenopathy noted and no lymphedema noted Resp: COMMON NORMALS: normal respiratory effort, No retractions, No use of accessory muscles and clear to auscultation bilaterally AUSCULTATION: clear to auscultation bilaterally Cardio: COMMON NORMALS: no JVD, regular rate, regular rhythm and No murmurs present (Cardio) RATE: regular rate RHYTHM: regular rhythm GI: COMMON NORMALS: Soft to palpation and No hepatosplenomegaly present AUSCULTATION: Yes normoactive bowel sounds PALPATION: Yes Soft to palpation, No Tenderness to palpation present (GI), No Guarding due to palpation present (GI) and Yes No hepatosplenomegaly present : COMMON NORMALS: Yes no CVA tenderness BLADDER/KIDNEY EXAM: Yes no CVA tenderness OTHER: No evidence of inguinal hernia on exam. Back/Pelvis: COMMON NORMALS: no CVA tenderness Extremity: COMMON NORMALS: normal to inspection, capillary refill normal, no clubbing, cyanosis or edema, no calf tenderness and no pedal edema Neuro: SENSORIUM/ORIENTATION: Yes oriented to person, Yes oriented to place and Yes oriented to time Skin: COMMON NORMALS: no rashes or lesions noted GENERAL SKIN EXAM: no rashes or lesions noted Course Vital Signs: Vital signs: Vital Signs Temperature 98.0 F 06/23/21 06:20 Pulse Rate 69 06/23/21 06:20 Respiratory Rate 18 06/23/21 06:20 Blood Pressure 110/69 06/23/21 06:20 Pulse Oximetry 96 06/23/21 06:20 MDM - Back Pain/Injury MDM Narrative: Medical decision making narrative: Labs reviewed on the chart. UA negative hemoglobin white count normal, CMP normal. Abdominal exam was la ign. There is no evidence of inguinal hernia on exam. We will discharge patient home. He did review the previous ER visit from 06/20 he had some varicoceles at that point although they are described in the report is rather minimal. Recommend that he follow-up with his primary care doctor. If he has persistent pain they can do further evaluation occluding consideration of advanced imaging and endoscopy. At this time no indication for CT given labs and benign exam. There is no suspicion of an emergent issue ongoing. He does have chronic back pain as well as the varicoceles both of which could cause some the discomfort he did tell me that is been going on for several months but is worse the last 2 days. Patient was angry violent and threatening that he had not received the CT that he wanted. He initially refused to leave. Then out of left the ER without his discharge paperwork after I had talked to him. Lab Data: Labs: Lab Results 06/23/21 06/23/21 06/23/21 06:25 06:25 06:30 WBC 8.1 10^3/uL 10^3/ uL (4.0-10.0) RBC 4.73 10^6/uL 10^6 /uL (4.1-5.3) Hgb 15.2 g/dL g/dL (11.7-16.6) Hct 43.9 % % (42.0-52.0) MCV 92.8 fl fl (80-94) MCH 32.1 pg pg (28.0-34.0) MCHC 34.6 g/dL g/dL (30.0-36.0) RDW 12.5 % % (12.1-15.1) Plt Count 201 10^3/cmm 10^3 /cmm (130-400) MPV 10.4 fL fL (7.4-10.4) Neut % (Auto) 49.1 % % Lymph % (Auto) 38.0 % % [place] % (Auto) 7.4 % % Eos % (Auto) 4.9 % % Baso % (Auto) 0.4 % % Neut # (Auto) 3.97 10^3/uL 10^3 /uL (1.8-7.7) Lymph # (Auto) 3.1 10^3/uL 10^3/ uL (0.8-4.8) [place] # (Auto) 0.6 10^3/uL 10^3/ uL (0.2-0.9) Eos # (Auto) 0.4 10^3/uL 10^3/ uL (0.0-0.8) Baso # (Auto) 0.0 10^3/uL 10^3/ uL (0.0-0.1) Nucleated RBC % (a uto) 0 % % Nucleated RBCs # 0.0 /100WBC /100W BC Sodium 137 mmol/L mmol/L (136-145) Potassium 3.8 mmol/L mmol/L (3.5-5.1) Chloride 102 mmol/L mmol/L (98-107) Carbon Dioxide 26 mmol/L mmol/L (22-29) Anion Gap 12.8 (5-19) BUN 14 mg/dL mg/dL (6-20) Creatinine 0.9 mg/dL mg/dL (0.7-1.2) GFR Calculation 92.5 mL/min mL/mi n (90-130) Glucose 142 mg/dL H mg/dL (65-115) Calculated Osmolal ity 287 mOsm/kg mOsm/ kg (285-295) Calcium 9.1 mg/dL mg/dL (8.5-10.5) Total Bilirubin 0.6 mg/dL mg/dL (0.15-1.2) AST 15 U/L U/L (0-40) ALT 16 U/L U/L (0-41) Alkaline Phosphata se 66 IU/L IU/L (40-130) Total Protein 6.9 g/dL g/dL (6.6-8.7) Albumin 4.1 g/dL g/dL (3.5-5.2) Globulin 2.8 g/dL g/dL (1.3-4.6) Urine Color Yellow (Yellow) Urine Appearance Clear (CLEAR) Urine pH 7 (5-7) Ur Specific Gravit y 1.010 (1.005-1.030) Urine Protein Neg (Negative) Urine Glucose (UA) Norm (Normal) Urine Ketones Negative (Negative) Urine Blood Neg (Negative) Urine Nitrate Negative (Negative) Urine Bilirubin Neg (Negative) Urine Urobilinogen 1 mg/dL H mg/dL (Negative) Ur Leukocyte Kristen ase Negative (Negative) Discharge Plan Discharge Patient Disposition: Home Clinical Impression: Chronic back pain greater than 3 months duration, Chronic right flank pain, Bilateral varicoceles Condition: Stable Prescriptions: New diclofenac sodium 75 mg tablet,delayed release (DR/EC) 75 mg PO Q12H PRN (Reason: pain) Qty: 20 RF: 0 No Action oxycodone 15 mg tablet 15 mg PO TID PRN (Reason: pain) 30 Days Qty: 90 RF: 0 oxycodone 15 mg tablet 15 mg PO TID PRN (Reason: pain) 30 Days Qty: 90 RF: 0 tramadol 50 mg tablet 50 mg PO QID PRN (Reason: pain) 30 Days Qty: 120 RF: 1 pregabalin [Lyrica] 200 mg capsule 200 mg PO TID 30 Days Qty: 90 RF: 1 Discharge Orders: Discharge ED (Routine); Ordered 06/23/21 Ordered By: Fernie Bolaños Referrals: [facility], [Primary Care Provider] - Discharge Diet: Usual diet Discharge Activity: Increase activity as tolerated Patient Instructions: Opioid Safety Activity Restrictions/Additional Instructions: Follow-up with your primary care doctor for further evaluation as indicated. Coding Level of Care Code ED Case Finisher for Lori Fwd Exam Comprehensive
== END 2021-06-23 07:19 | disposition home or self-care (01) ==
PROVIDERS: Emergency Provider Family Medicine
DX: G89.29 Other chronic pain (principal); R10.9 Unspecified abdominal pain; M54.9 Dorsalgia, unspecified; I86.1 Scrotal varices; F17.290 Nicotine dependence, other tobacco product, uncomplicated
CPT/HCPCS: 80053; 81003; 85025; 99282

== ENCOUNTER → 2021-11-14 16:19 | Outpatient (BNVA) | payer MEDICARE, MEDICAID, SELFPAY | PROVIDERS: PCP Nurse Practitioner Family; Visit Provider Nurse Practitioner Family | DX: Z00.00 Encounter for general adult medical examination without abnormal findings (principal); Z13.6 Encounter for screening for cardiovascular disorders; Z13.1 Encounter for screening for diabetes mellitus; Z11.59 Encounter for screening for other viral diseases; Z91.89 Other specified personal risk factors, not elsewhere classified; Z11.4 Encounter for screening for human immunodeficiency virus [HIV]; Z72.51 High risk heterosexual behavior | CPT/HCPCS: 80053; 80061; 86803; 87491; 87591; 87806 ==

== ENCOUNTER → 2022-02-25 09:00 | Outpatient (BNVA) | payer MEDICARE, MEDICAID, SELFPAY | PROVIDERS: PCP Nurse Practitioner Family; Visit Provider Nurse Practitioner Family | DX: N30.01 Acute cystitis with hematuria (principal) | CPT/HCPCS: 81003 ==

== ENCOUNTER 2022-02-27 16:48 | Outpatient (CLI) | payer MEDICARE, MEDICAID, SELFPAY ==
--- NOTE | 2022-02-27 17:02 | XR_ITS ---
WS: [id number] Abdomen series, Flat and upright 02/27/2022 Clinical Data: Flank pain Comparison: KUB, 08/11/2018. Findings: No free air is seen beneath the diaphragms. No abnormal intra-abdominal masses or calcifica tions are seen. There is fecal material throughout the colon. There are minimal prostate calcificatio ns. The bladder is partly full. There is a minimal levoscoliosis of the lumbar spine. XR/XR abdomen min 2V [id number] Impression: Negative flat and upright films of the abdomen.
== END 2022-02-27 16:49 | disposition home or self-care (01) ==
LOC: RAD 16:51
PROVIDERS: PCP Nurse Practitioner Family; Visit Provider Nurse Practitioner Family
DX: R10.9 Unspecified abdominal pain (principal)
CPT/HCPCS: 74019

== ENCOUNTER → 2022-02-28 09:45 | Outpatient (BNVA) | payer MEDICARE, MEDICAID, SELFPAY | PROVIDERS: PCP Nurse Practitioner Family; Visit Provider Nurse Practitioner Family | DX: M54.40 Lumbago with sciatica, unspecified side (principal); Z13.1 Encounter for screening for diabetes mellitus; K59.03 Drug induced constipation; T40.2X5A Adverse effect of other opioids, initial encounter; N30.00 Acute cystitis without hematuria; E78.5 Hyperlipidemia, unspecified | CPT/HCPCS: 80053 ==

== ENCOUNTER → 2024-06-11 12:29 | Outpatient (BNVA) | payer MEDICARE, SELFPAY | PROVIDERS: PCP Family Medicine; Visit Provider Family Medicine | DX: E78.5 Hyperlipidemia, unspecified (principal); M54.9 Dorsalgia, unspecified; G89.29 Other chronic pain; F17.200 Nicotine dependence, unspecified, uncomplicated | CPT/HCPCS: 80053; 80061 ==

== ENCOUNTER 2024-09-14 06:39 | Emergency (ER) | payer MEDICARE, SELFPAY ==
[2024-09-14 06:46] VITALS: BP 123/71; PULSE 63; RESP 20; TEMP 36.3; O2SAT 97
[2024-09-14 06:50] VITALS: BP 123/71; PULSE 63; RESP 20; TEMP 36.3; O2SAT 97
--- NOTE | 2024-09-14 07:25 | ED_ITS ---
HPI - General Adult General: Chief complaint: General Medical Stated complaint: possible animal bite Time Seen by Provider: 09/14/24 07:10 History of Present Illness: 44-year-old male presents to the emergen cy room stating that approximately a month ago he put his hand in the mouth of the dog that was trying to get some medications he was not really bitten but shortly after this the dog . He has an injury to the medial aspect of his right thumbnail but he does not think he was actually bitten at that time. Dog over a week ago and is not available for further evaluation. The dog did not have any rabies vaccine. He is unsure of his last tetanus shot. Associated symptoms: Deny chest pain, dyspnea or rash Related Data Home Medications Medication Instructions Recorded Confirmed acetaminophen 500 mg tablet 1,000 mg PO Q6H PRN Pain 09/14/24 09/14/24 multivitamin 1 tab PO DAILY 09/14/24 09/14/24 Allergies Allergy/AdvReac Type Severity Reaction Status Date / Time gabapentin AdvReac SWELLING Verified 06/10/24 13:31 OF THE THROAT paliperidone [From Invega] AdvReac SWELLING Verified 06/10/24 13:31 Review of Systems Const: Denies: fever(s) or chills Card: Denies: chest pain Resp: Denies: dyspnea GI: Denies: abdominal pain : Denies: dysuria, urinary frequency or urinary urgency Musc: Denies: neck pain or back pain Skin/Breast: Denies: rash PFSH ED PFSH: Medical History Low back pain Hyperlipidemia COPD (chronic obstructive pulmonary disease) H/O osteomyelitis Other schizophrenia Opioid contract exists Encounter for long-term use of opiate analgesic Neck pain, chronic Intervertebral disc disorders with radiculopathy, lumbar region Tobacco abuse counseling Smoker Surgical History H/O right knee surgery H/O hand surgery Family History Other CAD (coronary artery disease) Social History Smoking and tobacco/nicotine status: never used tobacco/nicotine Quit status (tobacco/nicotine): considering quitting Second hand smoke exposure: Yes Alcohol intake: never Substance/Drug Use: current Substance/Drug use frequency: few times a month Adopted: No Caregiver/support person: Yes (3 children and family members) Lives independently: Yes Household members: family and children Housing: House Physical Exam Const: COMMON NORMALS: no acute distress GENERAL APPEARANCE: cooperative and comfortable ORIENTATION/CONSCIOUSNESS: Yes awake, Yes oriented to person, Yes oriented to place and Yes oriented to time HENMT: COMMON NORMALS: normocephalic, atraumatic and hearing grossly normal bilaterally HEAD & SCALP: normocephalic and atraumatic Resp: COMMON NORMALS: normal respiratory effort, No retractions, No use of accessory muscles and clear to auscultation bilaterally AUSCULTATION: clear to auscultation bilaterally Cardio: COMMON NORMALS: regular rate, regular rhythm and No murmurs present (Cardio) RATE: regular rate RHYTHM: regular rhythm GI: COMMON NORMALS: Soft to palpation and No hepatosplenomegaly present AUSCULTATION: Yes normoactive bowel sounds PALPATION: Yes Soft to palpation, No Tenderness to palpation present (GI), No Guarding due to palpation present (GI) and Yes No hepatosplenomegaly present Extremity: COMMON NORMALS: normal to inspection, capillary refill normal, no clubbing, cyanosis or edema, no calf tenderness and no pedal edema Neuro: SENSORIUM/ORIENTATION: Yes oriented to person, Yes oriented to place and Yes oriented to time Skin: COMMON NORMALS: no rashes or lesions noted GENERAL SKIN EXAM: no rashes or lesions noted Course Vital Signs: Vital signs: Vital Signs Temperature 97.3 F L 09/14/24 06:50 Pulse Rate 58 L 09/14/24 07:48 Respiratory Rate 20 H 09/14/24 06:50 Blood Pressure 124/68 09/14/24 07:48 Pulse Oximetry 95 09/14/24 07:48 Oxygen Delivery Me thod Room Air 09/14/24 06:50 MDM - General Adult Medical Decision Making Patient is nearly a month from the potential exposure. Animal is there is no way to observe or test. Give rabies immunoglobulin and vaccine start the series. Tetanus updated. Follow-up with outpatient series no sign of localized infection from where the exposure occurred. No radiology studies performed this visit Discharge Plan Discharge Patient Disposition: Home Clinical Impression: Dog bite of finger, Need for immunization against rabies Condition: Stable Prescriptions: No Action multivitamin [Multi-Daily] Tablet 1 tab PO DAILY acetaminophen [Tylenol Ex Str Rapid Release] 500 mg Tablet 1,000 mg PO Q6H PRN (Reason: Pain) Discharge Orders: Discharge ED (Routine); Ordered 09/14/24 Ordered By: Fernie Bolaños Referrals: Robert Darby MD [Primary Care Provider] - Discharge Diet: Usual diet Discharge Activity: Increase activity as tolerated Patient Instructions: Opioid Safety, Pain Management Activity Restrictions/Additional Instructions: Thank you for choosing [facility] for your healthcare needs today. It is very important that you follow up as instructed or that you return to the Emergency Department should you have concerns or if your condition changes or worsens in any way. You are seen in the emergency room reporting contact with a dog nearly a month ago. He reported that afterwards the dog . Your tetanus was updated and you were started on a series of rabies vaccines. Follow-up with your primary care doctor if you have any further problems follow-up with his he was rabies vaccine outlined in the information you are given at the time of discharge. There is no sign of infection at the site of bite and do not require antibiotics at this time Coding Level of Care Code ED Account Engineer for Lori Mckeon
[2024-09-14] MEDS: rabies IG 300 unit/mL SDV 1 mL 1800 UNIT IM (07:39)
[2024-09-14] MEDS: rabies vaccine 2.5 unit SDV IM (07:40)
[2024-09-14] MEDS: tetanus-dipt-pertussis 0.5 mL SDV IM (07:41)
[2024-09-14 07:48] VITALS: BP 124/68; PULSE 58; O2SAT 95
== END 2024-09-14 07:50 | disposition home or self-care (01) ==
PROVIDERS: Emergency Provider Family Medicine; PCP Family Medicine
DX: S61.259A Open bite of unspecified finger without damage to nail, initial encounter (principal); W54.0XXA Bitten by dog, initial encounter; Z20.3 Contact with and (suspected) exposure to rabies; Z29.14 Encounter for prophylactic rabies immune globulin; J44.9 Chronic obstructive pulmonary disease, unspecified
CPT/HCPCS: 90375; 90471; 90675; 90715; 96372; 99283

== ENCOUNTER 2024-09-28 10:15 | Oncology outpatient (recurring) (ONCR) | payer MEDICARE, SELFPAY ==
[2024-09-17] MEDS: rabies vaccine 2.5 unit SDV IM (11:52)
[2024-09-21] MEDS: rabies vaccine 2.5 unit SDV IM (14:10)
[2024-09-28] MEDS: rabies vaccine 2.5 unit SDV IM (10:47)
== END 2024-10-15 23:59 | disposition home or self-care (01) ==
PROVIDERS: PCP Family Medicine; Visit Provider Family Medicine
DX: Z53.9 Procedure and treatment not carried out, unspecified reason (principal); Z23 Encounter for immunization; Z20.3 Contact with and (suspected) exposure to rabies
CPT/HCPCS: 90471; 90675

== ENCOUNTER 2024-10-20 08:55 | Outpatient (CLI) | payer MEDICARE, SELFPAY ==
--- NOTE | 2024-10-20 09:04 | XR_ITS ---
WS: [id number] Right knee, 3 views, 10/20/2024 Clinical Data: knee pain Comparison: Right knee, 03/24/2018 Findings: No fractures or dislocations are seen. The lateral aspect of the right patella and especially in the upper outer aspect there are numerous patellar fragments which are probably developmental. The joint spaces are normal. The patella is intact. The soft tissues are unremarkable. XR/XR knee RT 1-2V [id number] Impression: 1. Fragmented lateral and superior lateral aspect of the right patella unchange d. 2. No acute fractures.
== END 2024-10-20 08:56 | disposition home or self-care (01) ==
PROVIDERS: PCP Family Medicine; Visit Provider Family Medicine
DX: M25.561 Pain in right knee (principal); R93.6 Abnormal findings on diagnostic imaging of limbs
CPT/HCPCS: 73560

== ENCOUNTER → 2024-11-01 09:03 | Outpatient (BNVA) | payer MEDICARE, SELFPAY | PROVIDERS: PCP Family Medicine; Visit Provider Nurse Practitioner | DX: M17.11 Unilateral primary osteoarthritis, right knee (principal); M22.2X1 Patellofemoral disorders, right knee; S82.04 Comminuted fracture of patella; X58.XXXS Exposure to other specified factors, sequela | CPT/HCPCS: 73560; 73565; 99204 ==

== ENCOUNTER 2025-05-09 06:28 | Emergency (ER) | payer MEDICARE, MEDICAID, SELFPAY ==
--- OUTSIDE RECORDS SUMMARY | 2025-05-09 06:33 | XMS_ITS | Patient Health Record ---
Author Organization [facility] Address [address] [place] [address] Care Team Providers Care Wire Harness Assembler Name Role Phone Phil Agee Unavailable [phone] Reason For Referral No Information Medications Medication SIG (Take, Route, Frequency, Duration) Notes Start Date End Date Status carBAMazepine 200 MG Tablet 1 tab po tid Oral; Duration: 30 Carbamazepine 200mg Tablet 1 tab po tid #90 (Ninety) tablet(s) 04/14/2013 Active Xanax 0.5 MG Tablet Oral; Duration: 0 Xanax 0.5m g Tablet 04/14/2013 Active Social History Social History Additional Details Category Social Info Options Details zzMigrated Social History Migrated Social History Advance Directive: Current and Verified Supported by Advance Directive Organ Donation: Patient refuses Organ Donation Denied Portal User Patient declined portal account Problems Problem Type SNOMED Code ICD Code Onset Dates Problem Status W/U Status Risk Notes Problem Bipolar affective disorder, currently depressed, mild (662382878) Bipolar I disorder, most recent episode (or current) depressed, mild (296.51) 2 Active confirmed [id number]- Problem Generalized anxiety disorder (91175929) Anxiety, generalized (300.02) 3 Active confirmed [id number]- Problem Stress (775395793) Stress (300.02) 0 Active confirmed [id number]- Problem Delusional disorder (69357985) Delusions of grandeur (297.1) 2 Active confirmed [id number]- Problem Special screening for other conditions (V82.9) 1 Problem resolved confirmed [id number]- Problem Acne (07844882) Acne (706.1) 9 Problem resolved confirmed [id number]- Problem Chest pain (79748293) Chest pain (786.51) 0 Problem resolved confirmed [id number]- Problem Generalized abdominal pain (540465107) Generalized abdominal pain (789.07) 4 Problem resolved confirmed [id number]- Problem General examination of patient (814869949) Annual exam (V70.0) 9 Problem resolved confirmed [id number]- Problem Anxiety state (544430509) Situational stress with anxiety (300.09) 9 Problem resolved confirmed [id number]- Problem Abrasion of head (420709670) Abrasion to neck (910.0) 0 Problem resolved confirmed [id number]- Problem Open wound of foot (075346020) Laceration on the foot (892.0) 3 Problem resolved confirmed [id number]- Problem Moderate major depression, single episode (47661018) Major depression, single episode, moderate (296.22) 4 Problem resolved confirmed [id number]- Plan Of Treatment No Information Medical (General) History Surgical History Surgery Date(Month/Year) NONE
--- OUTSIDE RECORDS SUMMARY | 2025-05-09 06:33 | XMS_ITS | Patient Health Record ---
Author Organization [facility] Address [address] [place], [place] [id number] Care Team Providers Care Home Health Clinical Supervisor Name Role Phone Helio DAIGLE, SYLVIA Primary Care Provider Pk Ruiz MD Unavailable [phone] Winsome Beal MD Unavailable Unavailable Allergies Allergen (clinical drug ingredient) Drug/Non Drug Allergy documented on EMR Reaction Allergy Type Onset Date Status Not verifiable (uncoded) Unknown Allergy Active Reason For Referral No Information Plan Of Treatment No Information Insurance Providers Payer Name Payer Address Payer Phone Subscriber Number Group Number Insured Name Patient Relationship to Insured Coverage Start Date Coverage End Date [employer] Medicare Part B Claims Department [address] [address] [place] [address] [id number] Alexey Worley Self - patient is the insured [place] MED[place] [address] [place] [address] [id number] Alexey Worley Self - patient is the insured Medical (General) History Medical History History ICD Code See scanned documentation
--- OUTSIDE RECORDS SUMMARY | 2025-05-09 06:33 | XMS_ITS | Clinical Summary ---
Author Organization [facility] Address [address] Attn: Epic [place] [address] Care Team Providers Care Iron Plastic Bullet Maker Name Role Phone Unavailable Primary Care Provider Unavailabl e Medications amoxicillin (AMOXIL) 875 mg tablet Take 1 Tablet (875 mg) by mouth 2 times daily until all taken 20 Tablet 05/31/2021 6:15 PM CDT 05/31/2021 Active acetaminophen-co deine (TYLENOL #3) 300-30 mg tablet Take 1 Tablet by mouth every 8 hours as needed for pain. 20 Tablet 05/31/2021 6:15 PM CDT 05/31/2021 Active Encounters Date Type Department Care Team Description 02/15/2025 External Device Data [facility] ABSTRACTION Provider, Abstract from Last 3 Months Immunizations Immunization Administration Dates Next Due (ADACEL/BOOSTRIX)(10 YR UP) TDAP VACCINE, 0.5ML, IM 06/27/2009 (TDVAX)(7 YRS UP) TETANUS AN D DIPHTHERIA TOXOIDS, ADSORBED (2 LF OF TETANUS TOXOID AND 2 LF OF DIPHTHERIA TOXOID), 0.5ML (PF), IM 07/03/2005 Hepatitis A Vaccine 07/03/2005 Hepatitis B Vaccine 10/10/2008,09/11/2005,2004 Social History Tobacco Use Types Packs/Day Years Used Date Smoking Tobacco: Never Assessed Sex and Gender Information Value Date Recorded Sex Assigned at Not on file Legal 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 Gender Identity Not on file Sexual Orientation Not on file Plan of Treatment Health Maintenance Due Date Last Done Comments HEPATITIS B VACCINES (1 of 3 - 19+ 3-dose series) 1997 10/10/2008, 09/11/2005, 07/03/2005 DTAP/TDAP/TD VACCINES (2 - T d or Tdap) 06/27/2019 06/27/2009, 07/03/2005 COLORECTAL SCREENING 2023 Colorectal Cancer Screening 2023 FIT-DNA Q 3 years 2023 FIT/FOBT Q 1 year 2023 Flex Sig/CT Colonography Q 5 years 2023 INFLUENZA VACCINE (#1) 2025 HPV VACCINES Aged Out No longer eligi ble based on patient's age to complete this topic Insurance [employer] (INTERNAL) [facility]
[2025-05-09 06:36] VITALS: BP 111/73; PULSE 74; RESP 18; O2SAT 96; BMI 26.4
[2025-05-09 06:42] VITALS: BP 111/73; PULSE 62; RESP 18; O2SAT 96
--- NOTE | 2025-05-09 06:57 | W.ED.BACK ---
HPI - Back Pain/Injury General: Chief Complaint: Back Pain/Injury Stated Complaint: back pain Time Seen by Provider: 05/09/25 06:32 History of Present Illness: 44-year-old male presents emergency room complaining of lower back pain just to the left of the midline has been going on for 3 days no precipitating event. No urinary retention or fecal incontinence no saddle paresthesias. No radicular-like pain. No dysuria urgency or frequency no abdominal pain no fever sweats chills cough shortness of breath Associated symptoms: Deny abdominal pain, chills, dysuria, fever(s) or urinary urgency Related Data Home Medications ?Medication ?Instructions ?Recorded ?Confirmed acetaminophen 500 mg tablet 1,000 mg PO Q6H PRN Pain 09/14/24 05/09/25 ibuprofen 200 mg tablet (Advil) 800 mg PO Q6H PRN Fever Or Pain 05/09/25 05/09/25 Previous Rx's ?Medication ?Instructions ?Recorded diclofenac sodium 75 mg 75 mg PO Q12H PRN pain #20 tabs 05/09/25 tablet,delayed release prednisone 20 mg tablet 20 mg PO TID #15 tabs 05/09/25 tizanidine 4 mg tablet 4 mg PO Q6H PRN muscle spasticity 05/09/25 #20 tabs Allergies Allergy/AdvReac Type Severity Reaction Status Date / Time gabapentin AdvReac SWELLING Verified 11/01/24 09:23 OF THE THROAT paliperidone (From Invega) AdvReac SWELLING Verified 11/01/24 09:23 Review of Systems Const: Denies: fever(s) or chills Card: Denies: chest pain Resp: Denies: dyspnea GI: Denies: abdominal pain : Denies: dysuria, urinary frequency or urinary urgency Musc: Reports: back pain; Denies: neck pain or extremity pain Skin/Breast: Denies: rash PFSH ED PFSH: Medical History Primary osteoarthritis of right knee Patellofemoral pain syndrome of right knee Low back pain Hyperlipidemia COPD (chronic obstructive pulmonary disease) H/O osteomyelitis Other schizophrenia Opioid contract exists Encounter for long-term use of opiate analgesic Neck pain, chronic Intervertebral disc disorders with radiculopathy, lumbar region Tobacco abuse counseling Smoker Surgical History H/O right knee surgery H/O hand surgery Family History Other CAD (coronary artery disease) Social History Smoking and tobacco/nicotine status: unknown if used tobacco/nicotine Quit status (tobacco/nicotine): considering quitting Second hand smoke exposure: Yes Alcohol intake: never Substance/Drug Use: current Substance/Drug use frequency: few times a month Adopted: No Caregiver/support person: Yes (3 children and family members) Lives independently: Yes Household members: family and children Housing: House Physical Exam Const: COMMON NORMALS: no acute distress GENERAL APPEARANCE: cooperative and comfortable ORIENTATION/CONSCIOUSNESS: Yes awake, Yes oriented to person, Yes oriented to place and Yes oriented to time HENMT: COMMON NORMALS: normocephalic, atraumatic and hearing grossly normal bilaterally HEAD & SCALP: normocephalic and atraumatic Resp: COMMON NORMALS: normal respiratory effort, No retractions, No use of accessory muscles and clear to auscultation bilaterally AUSCULTATION: clear to auscultation bilaterally Cardio: COMMON NORMALS: regular rate, regular rhythm and No murmurs present (Cardio) RATE: regular rate RHYTHM: regular rhythm GI: COMMON NORMALS: Soft to palpation and No hepatosplenomegaly present AUSCULTATION: Yes normoactive bowel sounds PALPATION: Yes Soft to palpation, No Tenderness to palpation present (GI), No Guarding due to palpation present (GI) and Yes No hepatosplenomegaly present Extremity: COMMON NORMALS: normal to inspection, capillary refill normal, no clubbing, cyanosis or edema, no calf tenderness and no pedal edema Neuro: SENSORIUM/ORIENTATION: Yes oriented to person, Yes oriented to place and Yes oriented to time OTHER: Deep tendon reflexes +2/4 patellar tendon. Straight leg raising negative neurovascular lower extremities are intact. Skin: COMMON NORMALS: no rashes or lesions noted GENERAL SKIN EXAM: no rashes or lesions noted Course Vital Signs: Vital signs: Vital Signs Pulse Rate 53 L 05/09/25 09:53 Respiratory Rate 18 05/09/25 06:42 Blood Pressure 123/82 05/09/25 09:53 Pulse Oximetry 98 05/09/25 09:53 Oxygen Delivery Me thod Room Air 05/09/25 06:42 MDM - Back Pain/Injury Medical Decision Making Back pain improved. Will discharge patient home steroids anti-inflammatories muscle relaxers follow-up with primary care doctor return if he is with sudden worsening of symptoms. Her primary care can redirect him with further imaging or referral to PT as it is appropriate Medical Records I reviewed the patient's medical records. Labs I reviewed the patient's lab results. Laboratory Results Urine Color Yellow (Yellow) 05/09/25 06:50 Urine Appearance Clear (CLEAR) 05/09/25 06:50 Urine pH 5.5 (5-7) 05/09/25 06:50 Ur Specific [place] 1.025 (1.005-1.030) 05/09/25 06:50 Urine Protein Negative (Negative) 05/09/25 06:50 Urine Glucose (UA) Negative (Normal) 05/09/25 06:50 Urine Ketones Trace (Negative) 05/09/25 06:50 Urine Blood Trace (Negative) A 05/09/25 06:50 Urine Nitrate Negative (Negative) 05/09/25 06:50 Urine Bilirubin Negative (Negative) 05/09/25 06:50 Urine Urobilinogen 1.0 mg/dL (Negative) 05/09/25 06:50 Ur Leukocyte Esterase Negative (Negative) 05/09/25 06:50 Urine RBC 3-5 /hpf (0-2) 05/09/25 06:50 Urine WBC 0-5 /hpf (0-5) 05/09/25 06:50 Ur Squamous Epith Cells 0-5 /hpf (0-5) 05/09/25 06:50 Amorphous Sediment Not Reportable 05/09/25 06:50 Urine Bacteria None seen /hpf (NONE) 05/09/25 06:50 Hyaline Casts 0.40 /lpf 05/09/25 06:50 All radiology interpretation(s) finalized by discharge Discharge Plan Discharge Patient Disposition: Home Clinical Impression: Strain of lumbar region Condition: Stable Prescriptions: New tizanidine 4 mg tablet 4 mg PO Q6H PRN (Reason: muscle spasticity) Qty: 20 0RF Rx Instructions: do not exceed 3 doses per 24 hrs prednisone 20 mg tablet 20 mg PO TID Qty: 15 0RF Rx Instructions: 1 p.o. 3 times daily x3 days, 1 p.o. twice daily x2 days, 1 p.o. daily x2 days diclofenac sodium 75 mg tablet,delayed release (DR/EC) 75 mg PO Q12H PRN (Reason: pain) Qty: 20 0RF No Action acetaminophen [Tylenol Ex Str Rapid Release] 500 mg Tablet 1,000 mg PO Q6H PRN (Reason: Pain) ibuprofen [Advil] 200 mg Tablet 800 mg PO Q6H PRN (Reason: Fever Or Pain) Discharge Orders: Discharge ED (Routine); Ordered 05/09/25 Ordered By: Fernie Bolaños Referrals: Robert Darby MD [Primary Care Provider, Family Practice] Discharge Diet: Usual diet Discharge Activity: Resume usual activity Patient Instructions: Opioid Safety, Pain Management, Patient Portal & Wally Instructions Activity Restrictions/Additional Instructions: Thank you for choosing [facility] for your healthcare needs today. It is very important that you follow up as instructed or that you return to the Emergency Department should you have concerns or if your condition changes or worsens in any way. You were seen in the emergency room with back pain. Back pain appears to musculoskeletal urine did not show any sign of acute infection. Will discharge home on anti-inflammatory steroid taper and muscle relaxer. If not improving follow-up with your primary care doctor Print Language: Congolese Coding Level of Care Code ED Senior Cost Accountant for Lori Mckeon
[2025-05-09 07:09] LABS: Glucose Urine UA Negative (Normal); Nitrate Urine Negative (Negative); Specific Gravity, Urine 1.025 (1.005-1.030)
[2025-05-09] MEDS: ondansetron 2 mg/ML SDV 2 mL 4 MG IVP (07:09)
[2025-05-09] MEDS: morphine 4 mg/mL SDV 1 mL IVP (07:09)
[2025-05-09] MEDS: orphenadrine 30 mg/mL Inj 2 mL 60 MG IM (07:09)
[2025-05-09 07:14] LABS: Add Urine Microscopic? YES
--- NOTE | 2025-05-09 08:07 | PC.NURSE ---
PATIENT PLACED ON NRB AT 15 L PER HORSAN. PATIENT O2 SATURATION REMAINED THE SAME. PATIENT PLACED ON BIPAP, O2 SATURATION IMPROVED TO 95%.
[2025-05-09 09:53] VITALS: BP 123/82; PULSE 53; O2SAT 98
== END 2025-05-09 10:00 | disposition home or self-care (01) ==
PROVIDERS: Emergency Provider Family Medicine; PCP Family Medicine
DX: S39.012A Strain of muscle, fascia and tendon of lower back, initial encounter (principal); X58.XXXA Exposure to other specified factors, initial encounter
CPT/HCPCS: 81001; 96372; 96374; 96375; 99284; J1885; J2270; J2360; J2405